=== PATIENT | male | born 1965 | race Caucasian/White ===

== ENCOUNTER 2023-04-09 09:32 | Outpatient (CLI) | payer OTHER, SELFPAY | END 2023-04-09 09:33 | disposition home or self-care (01) | LOC: NFLDREF 04-13 11:19 | PROVIDERS: PCP Physician Assistant Medical; Referring Provider Physician Assistant Medical; Visit Provider Physician Assistant Medical | DX: Z00.00 Encounter for general adult medical examination without abnormal findings (principal); I10 Essential (primary) hypertension; E78.5 Hyperlipidemia, unspecified; R73.03 Prediabetes; E78.2 Mixed hyperlipidemia; E11.9 Type 2 diabetes mellitus without complications; Z12.5 Encounter for screening for malignant neoplasm of prostate | CPT/HCPCS: 80053; 80061; 84153 ==

== ENCOUNTER 2023-04-30 09:41 | Outpatient (CLI) | payer OTHER, SELFPAY ==
--- NOTE | 2023-04-30 10:43 | W.ANESCHARGE ---
Anesthesia Charges Start Date/Time Anesthesia Start Date: 04/30/23 Anesthesia Start Time: 10:36 Stop Date/Time Anesthesia Stop Date: 04/30/23 Anesthesia Stop Time: 11:01
--- NOTE | 2023-04-30 11:05 | W.ANESCHARGE ---
Anesthesia Charges Start Date/Time Anesthesia Start Date: 04/30/23 Anesthesia Start Time: 10:36 Stop Date/Time Anesthesia Stop Date: 04/30/23 Anesthesia Stop Time: 11:01
== END 2023-04-30 09:42 | disposition home or self-care (01) ==
LOC: OP CLINIC 09:41
PROVIDERS: PCP Physician Assistant Medical; Visit Provider Internal Medicine
DX: Z12.11 Encounter for screening for malignant neoplasm of colon (principal); K63.5 Polyp of colon; K57.30 Diverticulosis of large intestine without perforation or abscess without bleeding
CPT/HCPCS: 00811; 45380; J2704

== ENCOUNTER 2024-06-28 10:17 | Outpatient (CLI) | payer OTHER, SELFPAY | END 2024-06-28 10:18 | disposition home or self-care (01) | LOC: FRMREF 10:17 | PROVIDERS: PCP Physician Assistant Medical; Visit Provider Physician Assistant Medical | DX: E11.9 Type 2 diabetes mellitus without complications (principal); I10 Essential (primary) hypertension; E78.5 Hyperlipidemia, unspecified; Z12.5 Encounter for screening for malignant neoplasm of prostate | CPT/HCPCS: 80053; 80061; 82043; 82570; G0103 ==

== ENCOUNTER 2025-05-31 11:30 | Outpatient (CLI) | payer OTHER, SELFPAY | END 2025-05-31 11:31 | disposition home or self-care (01) | LOC: NFLDREF 06-09 11:28 | PROVIDERS: PCP Physician Assistant Medical; Referring Provider Physician Assistant Medical; Visit Provider Physician Assistant Medical | DX: Z00.00 Encounter for general adult medical examination without abnormal findings (principal); E11.9 Type 2 diabetes mellitus without complications; I10 Essential (primary) hypertension; E78.2 Mixed hyperlipidemia | CPT/HCPCS: 80053; 80061; 84443; G0103 ==